=== PATIENT | male | born 1995 | race Hispanic/Latino ===

== ENCOUNTER 2017-09-12 20:06 | Emergency (ER) | payer SELFPAY ==
[2017-09-12 20:34] LABS: EOSINOPHILS % (AUTO) 1.6 % (0.0-8.0); HEMATOCRIT 40.2 % (42-54); LYMPHOCYTES % (AUTO) 16.1 % (21.0-51.0); MEAN CORPUSCULAR HEMOGLOBIN 25.7 pg (27.0-33.0); MEAN CORPUSCULAR HGB CONC 32.5 g/dL (32.0-36.0); MEAN CORPUSCULAR VOLUME 79.2 fL (80-100); MONOCYTES % (AUTO) 8.9 % (3.0-13.0); NEUTROPHILS % (AUTO) 71.4 % (40.0-77.0); PLATELET COUNT (AUTO) 354 K/uL (130-400); RED BLOOD CELL COUNT(AUTO) 5.08 MIL/uL (4.50-6.20); RED CELL DISTRIBUTION WIDTH 14.2 % (11.0-15.5); WHITE BLOOD COUNT (AUTO) 7.7 K/uL (4.8-10.8)
[2017-09-12 20:45] LABS: CARBON DIOXIDE 30 mmol/L (21-32); CHLORIDE 105 mmol/L (101-111); CREATININE 1.1 mg/dL (0.5-1.5); GLOMERULAR FILTR. RATE CALC 90 mL/min (>60); GLUCOSE,RANDOM 89 mg/dL (70-105); SODIUM SERUM 145 mmol/L (136-145); UREA NITROGEN, BLOOD 13 mg/dL (7-18)
[2017-09-12 20:49] LABS: ALANINE AMINOTRANSFERASE 31 U/L (12-78); ALBUMIN 4.1 g/dL (3.5-5.0); ASPARTATE AMINOTRANSFERASE 29 U/L (10-37); BILIRUBIN,TOTAL 0.3 mg/dL (0.2-1.0); TOTAL PROTEIN, SERUM 7.7 g/dL (6.0-8.3)
[2017-09-12 20:51] LABS: ACETAMINOPHEN < 1 mcg/mL (10-29); ALCOHOL, BLOOD < 3 mg/dL (0-10); SALICYLATE < 2.8 mg/dL (2.8-20.0)
[2017-09-12 21:36] LABS: APPEARANCE,URINE Clear (CLEAR); BILIRUBIN,URINE Negative (NEGATIVE); COLOR,URINE Dark Yellow (YELLOW); GLUCOSE, URINE (UA) Negative (NEGATIVE); KETONES,URINE 40 mg/dL (NEGATIVE); LEUKOCYTE ESTERASE ,URINE Negative (NEGATIVE); NITRATE,URINE Negative (NEGATIVE); OCCULT BLOOD,URINE Negative (NEGATIVE); PROTEIN,URINE Negative (NEGATIVE)
[2017-09-12 22:10] LABS: AMPHET/METH SCREEN,URINE NEGATIVE (NEGATIVE); BARBITURATE SCREEN, URINE NEGATIVE (NEGATIVE); BENZODIAZEPINES SCREEN,URINE NEGATIVE (NEGATIVE); CANNABINOID SCREEN,URINE NEGATIVE (NEGATIVE); COCAINE SCREEN,URINE NEGATIVE (NEGATIVE); OPIATE SCREEN,URINE NEGATIVE (NEGATIVE); PHENCYCLIDINE SCREEN,URINE NEGATIVE (NEGATIVE)
== END 2017-09-13 00:22 | disposition home or self-care (01) ==
LOC: EDH 20:06
DX: F41.9 Anxiety disorder, unspecified (principal); F20.9 Schizophrenia, unspecified; F31.9 Bipolar disorder, unspecified; Z72.0 Tobacco use; Z59.0 Homelessness
CPT/HCPCS: 36415; 80053; 80305; 81003; 85025; 93005; 99285; G0480 ×2; G0481

== ENCOUNTER 2017-09-29 23:07 | Emergency (ER) | payer SELFPAY ==
[2017-09-29] MEDS ORDERED: HYOSCYAMINE SULFATE 0.125 MG TAB.SUBL SL ONE (23:42)
[2017-09-30] MEDS ORDERED: ONDANSETRON ODT 4 MG TAB ONE (00:31)
[2017-09-30] MEDS ORDERED: ACETAMINOPHEN EXTRA STRENGTH 500 MG TABLET ONE (00:34)
[2017-09-30 02:16] LABS: OCCULT BLOOD STOOL SINGLE ONLY NEGATIVE (NEGATIVE)
== END 2017-09-30 02:16 | disposition home or self-care (01) ==
LOC: EDH 23:07
DX: R19.7 Diarrhea, unspecified (principal); R50.9 Fever, unspecified; F20.9 Schizophrenia, unspecified; Z72.0 Tobacco use; F31.9 Bipolar disorder, unspecified
CPT/HCPCS: 82270; 87046; 87177; 87205; 87324

== ENCOUNTER 2019-04-30 19:46 | Emergency (ER) | payer OTHER, SELFPAY ==
[2019-04-30 21:21] LABS: BASOPHILS % (AUTO) 0.3 % (0.0-5.0); EOSINOPHILS % (AUTO) 3.1 % (0.0-8.0); LYMPHOCYTES % (AUTO) 18.3 % (21.0-51.0); MEAN CORPUSCULAR HEMOGLOBIN 28.1 pg (27.0-33.0); MONOCYTES % (AUTO) 11.3 % (3.0-13.0); PLATELET COUNT (AUTO) 226 K/uL (130-400); RED BLOOD CELL COUNT(AUTO) 3.88 MIL/uL (4.50-6.20); RED CELL DISTRIBUTION WIDTH 15.5 % (11.0-15.5); WHITE BLOOD COUNT (AUTO) 5.2 K/uL (4.8-10.8)
[2019-04-30 21:22] LABS: APPEARANCE,URINE Clear (CLEAR); BILIRUBIN,URINE Negative (NEGATIVE); COLOR,URINE Yellow (YELLOW); GLUCOSE, URINE (UA) Negative (NEGATIVE); KETONES,URINE 15 mg/dL (NEGATIVE); LEUKOCYTE ESTERASE ,URINE Negative (NEGATIVE); NITRATE,URINE Negative (NEGATIVE); OCCULT BLOOD,URINE Negative (NEGATIVE); PROTEIN,URINE Trace mg/dL (NEGATIVE)
[2019-04-30 21:28] LABS: BACTERIA,URINE Few /HPF (None Seen); RBC,URINE 0-1 /HPF (0-1); SQUAMOUS EPITHELIAL CELL,UR Rare /HPF (0-2); WBC,URINE 0-1 /HPF (0-1)
[2019-04-30 21:29] LABS: MUCUS,URINE Rare LPF (None Seen)
[2019-04-30 21:34] LABS: CARBON DIOXIDE 29 mmol/L (21-32); CHLORIDE 104 mmol/L (101-111); GLOMERULAR FILTR. RATE CALC 98 mL/min (>60); GLUCOSE,RANDOM 95 mg/dL (70-105); POTASSIUM 3.8 mmol/L (3.5-5.1); SODIUM SERUM 138 mmol/L (136-145); UREA NITROGEN, BLOOD 10 mg/dL (7-18)
[2019-04-30 21:35] LABS: INR 0.98 (0.85-1.15); PARTIAL THROMBOPLASTIN TIME 29.9 SEC (26.3-35.5); PROTHROMBIN TIME 10.3 SEC (9.6-11.6)
[2019-04-30 21:38] LABS: ALANINE AMINOTRANSFERASE 18 U/L (12-78); ALBUMIN 3.3 g/dL (3.5-5.0); ALCOHOL, BLOOD < 3 mg/dL (0-10); ASPARTATE AMINOTRANSFERASE 21 U/L (10-37); BILIRUBIN,TOTAL 0.4 mg/dL (0.2-1.0); CREATINE KINASE, TOTAL 296 U/L (21-232); LIPASE 114 U/L (114-286); TOTAL PROTEIN, SERUM 6.9 g/dL (6.0-8.3)
[2019-04-30 21:41] LABS: ACETAMINOPHEN < 1 mcg/mL (10-29); SALICYLATE < 2.8 mg/dL (2.8-20.0)
[2019-04-30 21:54] LABS: AMPHET/METH SCREEN,URINE NEGATIVE (NEGATIVE); BARBITURATE SCREEN, URINE NEGATIVE (NEGATIVE); BENZODIAZEPINES SCREEN,URINE NEGATIVE (NEGATIVE); CANNABINOID SCREEN,URINE NEGATIVE (NEGATIVE); COCAINE SCREEN,URINE NEGATIVE (NEGATIVE); OPIATE SCREEN,URINE NEGATIVE (NEGATIVE); PHENCYCLIDINE SCREEN,URINE NEGATIVE (NEGATIVE)
[2019-04-30] MEDS ORDERED: LORAZEPAM 1 MG TABLET ONE (23:13)
== END 2019-05-01 00:19 | disposition home or self-care (01) ==
LOC: EDH 19:46
DX: R10.9 Unspecified abdominal pain (principal); R11.0 Nausea; F20.9 Schizophrenia, unspecified; F31.9 Bipolar disorder, unspecified; J45.909 Unspecified asthma, uncomplicated
CPT/HCPCS: 36415; 71045; 80053; 80305; 81001; 82550; 83690; 84484 ×2; 85025; 85610; 85730; 93005; 99285; G0480 ×2; G0481

== ENCOUNTER 2019-05-01 07:23 | Emergency (ER) | payer SELFPAY ==
[2019-05-01] MEDS ORDERED: DICYCLOMINE HCL 10 MG/ML 2ML AMP IM ONE (08:18)
[2019-05-01] MEDS ORDERED: ONDANSETRON ODT 4 MG TAB ONE (08:19)
== END 2019-05-01 09:12 | disposition home or self-care (01) ==
LOC: EDH 07:23
DX: R10.9 Unspecified abdominal pain (principal); R11.0 Nausea; R50.9 Fever, unspecified; F31.9 Bipolar disorder, unspecified; F20.9 Schizophrenia, unspecified; J45.909 Unspecified asthma, uncomplicated; Z72.0 Tobacco use
CPT/HCPCS: 96372; 99283; J0500

== ENCOUNTER 2019-08-02 19:08 | Emergency (ER) | payer OTHER, SELFPAY ==
[2019-08-02] MEDS ORDERED: TETANUS/DIPHTHERIA TOXOID [ADULT] 0.5 ML VIAL IM ONE (19:56)
[2019-08-02 19:57] LABS: BASOPHILS % (AUTO) 0.6 % (0.0-5.0); EOSINOPHILS % (AUTO) 1.9 % (0.0-8.0); HEMATOCRIT 39.3 % (42-54); LYMPHOCYTES % (AUTO) 27.1 % (21.0-51.0); MEAN CORPUSCULAR HEMOGLOBIN 24.8 pg (27.0-33.0); MEAN CORPUSCULAR HGB CONC 31.3 g/dL (32.0-36.0); MEAN CORPUSCULAR VOLUME 79.4 fL (79-99); MONOCYTES % (AUTO) 11.3 % (3.0-13.0); NEUTROPHILS % (AUTO) 58.9 % (40.0-77.0); PLATELET COUNT (AUTO) 328 K/uL (130-400); RED BLOOD CELL COUNT(AUTO) 4.95 MIL/uL (4.50-6.20); RED CELL DISTRIBUTION WIDTH 13.5 % (11.0-15.5); WHITE BLOOD COUNT (AUTO) 5.4 K/uL (4.8-10.8)
[2019-08-02 20:15] LABS: APPEARANCE,URINE Clear (CLEAR); BILIRUBIN,URINE Negative (NEGATIVE); COLOR,URINE Yellow (YELLOW); GLUCOSE, URINE (UA) Negative (NEGATIVE); KETONES,URINE Negative (NEGATIVE); LEUKOCYTE ESTERASE ,URINE Negative (NEGATIVE); NITRATE,URINE Negative (NEGATIVE); OCCULT BLOOD,URINE Negative (NEGATIVE); PROTEIN,URINE Negative (NEGATIVE); UROBILINOGEN,URINE 0.2 mg/dL (0.2-1.0)
[2019-08-02 20:16] LABS: AMPHET/METH SCREEN,URINE NEGATIVE (NEGATIVE); BARBITURATE SCREEN, URINE NEGATIVE (NEGATIVE); BENZODIAZEPINES SCREEN,URINE NEGATIVE (NEGATIVE); CANNABINOID SCREEN,URINE NEGATIVE (NEGATIVE); COCAINE SCREEN,URINE NEGATIVE (NEGATIVE); OPIATE SCREEN,URINE NEGATIVE (NEGATIVE); PHENCYCLIDINE SCREEN,URINE NEGATIVE (NEGATIVE)
[2019-08-02 20:23] LABS: CARBON DIOXIDE 27 mmol/L (21-32); CHLORIDE 104 mmol/L (101-111); CREATININE 0.8 mg/dL (0.5-1.5); GLOMERULAR FILTR. RATE CALC 127 mL/min (>60); GLUCOSE,RANDOM 91 mg/dL (70-105); POTASSIUM 3.9 mmol/L (3.5-5.1); SODIUM SERUM 141 mmol/L (136-145); UREA NITROGEN, BLOOD 19 mg/dL (7-18)
[2019-08-02 20:28] LABS: ALANINE AMINOTRANSFERASE 34 U/L (12-78); ALBUMIN 3.8 g/dL (3.5-5.0); ALCOHOL, BLOOD < 3 mg/dL (0-10); ASPARTATE AMINOTRANSFERASE 26 U/L (10-37); BILIRUBIN,TOTAL 0.2 mg/dL (0.2-1.0); CREATINE KINASE, TOTAL 101 U/L (21-232); SALICYLATE 3.2 mg/dL (2.8-20.0); TOTAL PROTEIN, SERUM 7.2 g/dL (6.0-8.3)
[2019-08-02 20:35] LABS: ACETAMINOPHEN < 1 mcg/mL (10-29)
== END 2019-08-02 23:04 | disposition home or self-care (01) ==
LOC: EDH 19:08
DX: S51.811A Laceration without foreign body of right forearm, initial encounter (principal); F20.9 Schizophrenia, unspecified; J45.909 Unspecified asthma, uncomplicated; F31.9 Bipolar disorder, unspecified; Z72.0 Tobacco use; Z79.899 Other long term (current) drug therapy; Z91.030 Bee allergy status; X83.8XXA Intentional self-harm by other specified means, initial encounter; Y93.89 Activity, other specified; Y92.89 Other specified places as the place of occurrence of the external cause; Y99.8 Other external cause status
CPT/HCPCS: 36415; 80053; 80305; 81003; 82550; 84484; 85025; 90471; 90714; 93005; 99285; G0480 ×2; G0481

== ENCOUNTER 2020-01-12 11:28 | Observation (INO) | payer OTHER ==
[~2020-01-12] VITALS: Ht 188 cm; Wt 89.4 kg
[2020-01-12 12:13] LABS: BASOPHILS % (AUTO) 0.8 % (0.0-5.0); EOSINOPHILS % (AUTO) 0.9 % (0.0-8.0); HEMATOCRIT 44.2 % (42-54); LYMPHOCYTES % (AUTO) 13.5 % (21.0-51.0); MEAN CORPUSCULAR HEMOGLOBIN 25.9 pg (27.0-33.0); MEAN CORPUSCULAR HGB CONC 32.8 g/dL (32.0-36.0); MEAN CORPUSCULAR VOLUME 78.9 fL (79-99); MONOCYTES % (AUTO) 6.8 % (3.0-13.0); NEUTROPHILS % (AUTO) 77.6 % (40.0-77.0); PLATELET COUNT (AUTO) 323 K/uL (130-400); RED CELL DISTRIBUTION WIDTH 14.9 % (11.0-15.5); WHITE BLOOD COUNT (AUTO) 7.9 K/uL (4.8-10.8)
[2020-01-12 12:18] LABS: APPEARANCE,URINE Clear (CLEAR); BILIRUBIN,URINE Small (NEGATIVE); COLOR,URINE Dark Yellow (YELLOW); GLUCOSE, URINE (UA) Negative (NEGATIVE); KETONES,URINE Trace mg/dL (NEGATIVE); LEUKOCYTE ESTERASE ,URINE Negative (NEGATIVE); NITRATE,URINE Negative (NEGATIVE); OCCULT BLOOD,URINE Negative (NEGATIVE); PH,URINE 5.5 (5.0-8.0); PROTEIN,URINE POS 1+ mg/dL (NEGATIVE)
[2020-01-12 12:21] LABS: AMPHET/METH SCREEN,URINE NEGATIVE (NEGATIVE); BARBITURATE SCREEN, URINE NEGATIVE (NEGATIVE); BENZODIAZEPINES SCREEN,URINE NEGATIVE (NEGATIVE); CANNABINOID SCREEN,URINE POSITIVE (NEGATIVE); COCAINE SCREEN,URINE POSITIVE (NEGATIVE); OPIATE SCREEN,URINE NEGATIVE (NEGATIVE); PHENCYCLIDINE SCREEN,URINE NEGATIVE (NEGATIVE)
[2020-01-12 12:27] LABS: CARBON DIOXIDE 27 mmol/L (21-32); CHLORIDE 104 mmol/L (101-111); CREATININE 1.2 mg/dL (0.5-1.5); GLOMERULAR FILTR. RATE CALC 79 mL/min (>60); GLUCOSE,RANDOM 95 mg/dL (70-105); POTASSIUM 3.6 mmol/L (3.5-5.1); SODIUM SERUM 140 mmol/L (136-145); UREA NITROGEN, BLOOD 20 mg/dL (7-18)
[2020-01-12 12:31] LABS: ALANINE AMINOTRANSFERASE 24 U/L (12-78); ALBUMIN 4.4 g/dL (3.5-5.0); ASPARTATE AMINOTRANSFERASE 25 U/L (10-37); BILIRUBIN,TOTAL 0.8 mg/dL (0.2-1.0); SALICYLATE 3.6 mg/dL (2.8-20.0); TOTAL PROTEIN, SERUM 8.2 g/dL (6.0-8.3)
[2020-01-12 12:35] LABS: ACETAMINOPHEN < 1 mcg/mL (10-29)
[2020-01-12 13:23] LABS: BACTERIA,URINE Few /HPF (None Seen); CALCIUM OXALATE CRYSTALS,UR Moderate /LPF (None Seen); MUCUS,URINE Moderate LPF (None Seen); RBC,URINE 0-1 /HPF (0-1); SQUAMOUS EPITHELIAL CELL,UR 0-2 /HPF (0-2); WBC,URINE None Seen /HPF (0-1)
[2020-01-12] MEDS ORDERED: OLANZAPINE 5 MG TAB PO SCH (17:45)
[2020-01-12] MEDS ORDERED: ACETAMINOPHEN 325 MG TAB PO PRN ×2 (20:45)
[2020-01-12] MEDS ORDERED: ALPRAZOLAM 0.5 MG TABLET PO PRN (20:45)
[2020-01-12] MEDS ORDERED: ONDANSETRON HCL 4 MG/2 ML VIAL IV PRN (20:45)
[2020-01-12] MEDS: FAMOTIDINE 20MG TAB 20 MG TAB PO SCH (21:00)
[2020-01-12] MEDS ORDERED: FAMOTIDINE 20MG TAB 20 MG TAB ONE (21:14)
[2020-01-13 00:42] VITALS: BP 97/56
[2020-01-13 04:00] VITALS: BP 106/46
[2020-01-13 06:09] LABS: BASOPHILS % (AUTO) 0.7 % (0.0-5.0); EOSINOPHILS % (AUTO) 2.1 % (0.0-8.0); HEMATOCRIT 45.4 % (42-54); LYMPHOCYTES % (AUTO) 22.3 % (21.0-51.0); MEAN CORPUSCULAR HEMOGLOBIN 25.7 pg (27.0-33.0); MEAN CORPUSCULAR HGB CONC 32.2 g/dL (32.0-36.0); MEAN CORPUSCULAR VOLUME 79.9 fL (79-99); MONOCYTES % (AUTO) 8.7 % (3.0-13.0); NEUTROPHILS % (AUTO) 65.8 % (40.0-77.0); PLATELET COUNT (AUTO) 282 K/uL (130-400); RED BLOOD CELL COUNT(AUTO) 5.68 MIL/uL (4.50-6.20); WHITE BLOOD COUNT (AUTO) 7.2 K/uL (4.8-10.8)
[2020-01-13 06:38] LABS: ALBUMIN 3.8 g/dL (3.5-5.0); BILIRUBIN,TOTAL 0.8 mg/dL (0.2-1.0); CREATININE 1.1 mg/dL (0.5-1.5); POTASSIUM 4.1 mmol/L (3.5-5.1); TOTAL PROTEIN, SERUM 7.5 g/dL (6.0-8.3)
[2020-01-13 08:00] VITALS: BP 128/79
[2020-01-13] MEDS ORDERED: FOLIC ACID 1 MG TABLET PO SCH (09:00)
[2020-01-13] MEDS ORDERED: THIAMINE HCL 100 MG TABLET PO SCH (09:00)
[2020-01-13] MEDS: FAMOTIDINE 20MG TAB 20 MG TAB PO SCH (09:52)
[2020-01-13] MEDS: LACTATED RINGERS 1000ML 1,000 ML IV SCH ×2 (09:57→14:17)
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
[2020-01-13 11:00] VITALS: BP 109/46
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
--- NOTE | 2020-01-13 11:25 | NUR ---
PT IV PT STATED HE WAS GOING TO PULL IV OUT IF I DIDN'T D/C IV. IV 20 G D/C. Addendum: 01/13/20 at 1127 by RYAN NOLAN RN RN I EXPLAINED THE IMPORTANCE OF HAVING AN IV ACCES FOR FLUID IV ADMINISTRATION. HE STILL WANTED IV D.C
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
--- NOTE | 2020-01-13 14:24 | NUR ---
[facility] PER [place] CRISIS SCREENER, SPOKE TO HER RECREATIONAL ASSISTANT AND DOESN'T MEET CRITERIA. MARIE STATES, THAT HE HAS DONE THIS BEFORE THAT HE IS BEING MANIPULATIVE. I RAISED MY CONCERN ABOUT HIS SUICIDE IDEATIONS. MR SALAZAR STATED AGAIN PER HER RECREATIONAL ASSISTANT DOESN'T MEET CRITERIA.
[2020-01-13] MEDS ORDERED: OLANZAPINE 10MG/ML 1ML VIAL IM STA (15:06)
[2020-01-13] MEDS ORDERED: OLANZAPINE 10MG/ML 1ML VIAL IM SCH (15:11)
[2020-01-13] MEDS ORDERED: DiphenhydrAMINE HCL 50 MG/ML VIAL IM SCH (15:15)
--- NOTE | 2020-01-13 15:35 | NUR ---
IM INJ PT AGREED TO RECEIVE IM INJ
[2020-01-13 16:00] VITALS: BP 111/57
[2020-01-13] MEDS ORDERED: OLANZAPINE 10MG/ML 1ML VIAL IM PRN (16:00)
--- NOTE | 2020-01-13 17:00 | NUR ---
MULTIPLE DISCUSSION WITH [facility] CALL TO [facility] RE TELEPHONE ASSESSMENT DONE IN ER. POINTED OUT THAT THE PATIENT WAS CONSIDERED 'SAFE TO DISCHARGE IN CARE OF PARTNER" ADVISED MARIE AT [facility] THAT NO REPORT IS IN THE CHART AND THAT THERE IS NO PARTNER SO THEREFORE THAT PART OF THE DISPO CANNOT BE FULFILLED. RESCREENING REQUESTED BY THIS CM AND DONE AT BEDSIDE BY [facility] SCREENINER VIA CELL PHONE- THIS CM'S. AT END OF CALL PATIENT STARTED YELLING AT SCREENER-- AND THREW THE PHONE ON THE END OF THE BED. CALL BACK TO RYAN FROM [place] - STATES DOES NOT MEET CRITERIA. THIS CM CALLED [facility] TO GET SUPERVISIOR EXPLANATION- KATIE PRADHAN- WHO STMED REC COMPLETED CONFIRMED W THAIS AND SENT BY RIGOBERTO THAT PATIENT IS WELL KNOWNS TO [facility] AND THAT THEY WILL REPORT HIS CURRENT BEHAVIOR TO THE [facility]. LORNE STATES [facility] CAN DISCHARGE PT HE IS ALERT AND CAPABLE OF MAKING DECISIONS FOR HIMSELF. ADVISED DR. TRINIDAD, WHO WAS HERE TO SEE PATIENT- HE GAVE ORDER FOR MEDS -TO DECREASE RISK OF HARM TO STAFF- AND TO CALL THE POLICE AND REPORT PATIENT THREATS. ORDER PLACED FOR CALL TO POLICE AND ADVISED [facility] CM DIR DAL[place], -- AND CHARGE NURSE ARVIND OF SAME Addendum: 01/13/20 at 1801 by KAREN DUDLEY RN CM Amended: Links added.
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
--- NOTE | 2020-01-13 21:10 | NUR ---
01/13/20 @ 2017: Patient very upset since the beginning of the shift. He continued insisting he was going to be leaving even if it was without the doctors consent. Did explain to the patient the reason why we could not discharge him, due to his insistence of killing himself, and hurting others. Patient earlier had stated he was still having those thoughts. Now patient stating he does want to hurt himself or any one else. Patient insisted that he has things to do. I continued to encouraged patient to stay, informed him of the risk if he lives which would even include , verbalized understanding. Patient encouraged to follow up with his doctor. Instructed to come back to the ER or call EMS if he starts feeling homicidal or suicidal, encouraged also to call hotline if he did not want to come back. Patient verbalized understanding, stated he did not need anyone. Patient went ahead and signed the AMA form. Waiting for security to bring his back pack. 01/13/20 @ 2024: Serina MARTINvideo game animator called and made her aware of the patient signing himself AMA. Instructed to make sure and call [facility] ACE[facility]ED[facility] to make them aware patient will be leaving. 01/13/20 @ 2025: I called [facility] ACE[facility], spoke to Taye informed him That Evon one of the officers # [id number] had come in earlier to make a report. Taye attempted to locate the officer, Taye came back on the line and informed me the officer is on a call. Taye stated he would let him know the patient left the hospital AMA and is out in the streets. 01/13/20 @2109: Patient received his backpack and was escorted down by MOLD INSERT CHANGER to ER exit. Instructed patient to be safe and come back if feeling any bad taught, or feeling sick. Patient verbalized understanding.
== END 2020-01-13 21:10 | disposition left against medical advice (07) ==
LOC: EDH 11:28 → EDHIP 20:32 → 3BH 23:28
PROVIDERS: ADMIT Internal Medicine; ATTEND Internal Medicine
DX: F29 Unspecified psychosis not due to a substance or known physiological condition (principal); S60.511A Abrasion of right hand, initial encounter; R45.851 Suicidal ideations; R45.850 Homicidal ideations; J45.909 Unspecified asthma, uncomplicated; F31.9 Bipolar disorder, unspecified; F20.9 Schizophrenia, unspecified; F60.2 Antisocial personality disorder; Z91.030 Bee allergy status; Z59.0 Homelessness; X58.XXXA Exposure to other specified factors, initial encounter; Y93.9 Activity, unspecified; Y92.9 Unspecified place or not applicable; Y99.9 Unspecified external cause status
CPT/HCPCS: 36415 ×2; 80053 ×2; 80305; 81001; 82550; 84484; 85025 ×2; 96372 ×2; G0378 ×5; G0480 ×2; G0481; J1200; J3490 ×2; J7120

== ENCOUNTER 2020-08-18 03:00 | Emergency (ER) | payer OTHER ==
[2020-08-18 03:23] LABS: BASOPHILS % (AUTO) 0.7 % (0.0-5.0); EOSINOPHILS % (AUTO) 1.9 % (0.0-8.0); HEMATOCRIT 45.8 % (42-54); LYMPHOCYTES % (AUTO) 31.5 % (21.0-51.0); MEAN CORPUSCULAR HEMOGLOBIN 26.1 pg (27.0-33.0); MEAN CORPUSCULAR HGB CONC 32.5 g/dL (32.0-36.0); MEAN CORPUSCULAR VOLUME 80.4 fL (79-99); MONOCYTES % (AUTO) 6.3 % (3.0-13.0); NEUTROPHILS % (AUTO) 59.4 % (40.0-77.0); PLATELET COUNT (AUTO) 244 K/uL (130-400); RED CELL DISTRIBUTION WIDTH 15.5 % (11.0-15.5); WHITE BLOOD COUNT (AUTO) 5.9 K/uL (4.8-10.8)
[2020-08-18 03:25] LABS: APPEARANCE,URINE Clear (CLEAR); BILIRUBIN,URINE Negative (NEGATIVE); COLOR,URINE Yellow (YELLOW); GLUCOSE, URINE (UA) Negative (NEGATIVE); KETONES,URINE Negative (NEGATIVE); LEUKOCYTE ESTERASE ,URINE Negative (NEGATIVE); NITRATE,URINE Negative (NEGATIVE); OCCULT BLOOD,URINE Negative (NEGATIVE); PH,URINE 5.5 (5.0-8.0); PROTEIN,URINE Negative (NEGATIVE); UROBILINOGEN,URINE 0.2 mg/dL (0.2-1.0)
[2020-08-18 03:27] LABS: CREATININE 1.1 mg/dL (0.5-1.5); POTASSIUM 4.4 mmol/L (3.5-5.1)
[2020-08-18 03:30] LABS: AMPHET/METH SCREEN,URINE NEGATIVE (NEGATIVE); BARBITURATE SCREEN, URINE NEGATIVE (NEGATIVE); BENZODIAZEPINES SCREEN,URINE NEGATIVE (NEGATIVE); CANNABINOID SCREEN,URINE NEGATIVE (NEGATIVE); COCAINE SCREEN,URINE POSITIVE (NEGATIVE); OPIATE SCREEN,URINE NEGATIVE (NEGATIVE); PHENCYCLIDINE SCREEN,URINE NEGATIVE (NEGATIVE)
[2020-08-18 03:32] LABS: ACETAMINOPHEN < 1 mcg/mL (10-29); ALBUMIN 3.8 g/dL (3.5-5.0); BILIRUBIN,TOTAL 0.3 mg/dL (0.2-1.0); SALICYLATE < 2.8 mg/dL (2.8-20.0)
== END 2020-08-18 11:30 | disposition short-term general hospital (02) ==
LOC: EDH 03:00
DX: R45.851 Suicidal ideations (principal); J45.909 Unspecified asthma, uncomplicated; F31.9 Bipolar disorder, unspecified; F20.9 Schizophrenia, unspecified; Z91.030 Bee allergy status
CPT/HCPCS: 36415; 80053; 80305; 81003; 85025; 99283; G0481

== ENCOUNTER 2020-09-01 20:53 | Emergency (ER) | payer SELFPAY ==
[2020-09-01 21:41] LABS: APPEARANCE,URINE Clear (CLEAR); BILIRUBIN,URINE Negative (NEGATIVE); COLOR,URINE Yellow (YELLOW); GLUCOSE, URINE (UA) Negative (NEGATIVE); KETONES,URINE Trace mg/dL (NEGATIVE); LEUKOCYTE ESTERASE ,URINE Negative (NEGATIVE); NITRATE,URINE Negative (NEGATIVE); OCCULT BLOOD,URINE Negative (NEGATIVE); PH,URINE 5.5 (5.0-8.0); PROTEIN,URINE Negative (NEGATIVE); UROBILINOGEN,URINE 0.2 mg/dL (0.2-1.0)
[2020-09-01 21:43] LABS: BASOPHILS % (AUTO) 0.7 % (0.0-5.0); EOSINOPHILS % (AUTO) 1.5 % (0.0-8.0); HEMATOCRIT 40.8 % (42-54); LYMPHOCYTES % (AUTO) 30.6 % (21.0-51.0); MEAN CORPUSCULAR HEMOGLOBIN 25.7 pg (27.0-33.0); MEAN CORPUSCULAR HGB CONC 32.1 g/dL (32.0-36.0); MEAN CORPUSCULAR VOLUME 80.2 fL (79-99); MONOCYTES % (AUTO) 8.1 % (3.0-13.0); NEUTROPHILS % (AUTO) 58.8 % (40.0-77.0); PLATELET COUNT (AUTO) 209 K/uL (130-400); RED BLOOD CELL COUNT(AUTO) 5.09 MIL/uL (4.50-6.20); RED CELL DISTRIBUTION WIDTH 15.4 % (11.0-15.5); WHITE BLOOD COUNT (AUTO) 5.8 K/uL (4.8-10.8)
[2020-09-01 21:48] LABS: AMPHET/METH SCREEN,URINE NEGATIVE (NEGATIVE); BARBITURATE SCREEN, URINE NEGATIVE (NEGATIVE); BENZODIAZEPINES SCREEN,URINE NEGATIVE (NEGATIVE); CANNABINOID SCREEN,URINE NEGATIVE (NEGATIVE); COCAINE SCREEN,URINE POSITIVE (NEGATIVE); OPIATE SCREEN,URINE NEGATIVE (NEGATIVE); PHENCYCLIDINE SCREEN,URINE NEGATIVE (NEGATIVE)
[2020-09-01 22:08] LABS: CARBON DIOXIDE 27 mmol/L (21-32); CHLORIDE 108 mmol/L (101-111); CREATININE 1.1 mg/dL (0.5-1.5); GLOMERULAR FILTR. RATE CALC 87 mL/min (>60); GLUCOSE,RANDOM 100 mg/dL (70-105); POTASSIUM 4.1 mmol/L (3.5-5.1); SODIUM SERUM 141 mmol/L (136-145); UREA NITROGEN, BLOOD 12 mg/dL (7-18)
[2020-09-01 22:21] LABS: ALANINE AMINOTRANSFERASE 27 U/L (12-78); ASPARTATE AMINOTRANSFERASE 28 U/L (10-37); BILIRUBIN,TOTAL 0.3 mg/dL (0.2-1.0)
[2020-09-01 22:22] LABS: ACETAMINOPHEN < 1 mcg/mL (10-29); ALBUMIN 3.7 g/dL (3.5-5.0); ALCOHOL, BLOOD < 3 mg/dL (0-10); CREATINE KINASE, TOTAL 444 U/L (21-232); SALICYLATE < 2.8 mg/dL (2.8-20.0)
[2020-09-01] MEDS ORDERED: SODIUM CHLORIDE 0.9% 1000ML 1,000 ML IV ONE (23:20)
== END 2020-09-02 00:55 | disposition home or self-care (01) ==
LOC: EDH 20:53
DX: F31.89 Other bipolar disorder (principal); F19.10 Other psychoactive substance abuse, uncomplicated; J45.909 Unspecified asthma, uncomplicated; F20.9 Schizophrenia, unspecified; Z59.0 Homelessness; Z91.030 Bee allergy status
CPT/HCPCS: 36415; 80053; 80305; 81003; 82550; 85025; 99283; G0481; J7030

== ENCOUNTER 2020-10-25 12:49 | Emergency (ER) | payer OTHER | END 2020-10-25 13:16 | LOC: EDH 12:49 → EEVIPCON 12:49 → EDH 13:16 | DX: S50.812A Abrasion of left forearm, initial encounter (principal); S90.812A Abrasion, left foot, initial encounter; S90.811A Abrasion, right foot, initial encounter; F20.9 Schizophrenia, unspecified; F31.9 Bipolar disorder, unspecified; Z91.030 Bee allergy status; J45.909 Unspecified asthma, uncomplicated; X58.XXXA Exposure to other specified factors, initial encounter; Y93.89 Activity, other specified; Y92.89 Other specified places as the place of occurrence of the external cause; Y99.8 Other external cause status ==

== ENCOUNTER 2021-06-23 05:27 | Emergency (ER) | payer SELFPAY ==
[~2021-06-23] VITALS: Ht 177.8 cm; Wt 68.0 kg
[2021-06-23] MEDS ORDERED: MORPHINE 2 MG SYG ONE (06:06)
[2021-06-23 08:00] VITALS: BP 118/72
== END 2021-06-23 13:30 | disposition left against medical advice (07) ==
LOC: EDH 05:27
DX: R45.851 Suicidal ideations (principal); F32.A Depression, unspecified
CPT/HCPCS: 99281

== ENCOUNTER 2021-06-23 16:58 | Emergency (ER) | payer SELFPAY ==
[~2021-06-23] VITALS: Ht 182.9 cm; Wt 54.4 kg
[2021-06-23 17:23] LABS: APPEARANCE,URINE Clear (CLEAR); BILIRUBIN,URINE Negative (NEGATIVE); COLOR,URINE Yellow (YELLOW); GLUCOSE, URINE (UA) Negative (NEGATIVE); KETONES,URINE Negative (NEGATIVE); LEUKOCYTE ESTERASE ,URINE Negative (NEGATIVE); NITRATE,URINE Negative (NEGATIVE); OCCULT BLOOD,URINE Negative (NEGATIVE); PROTEIN,URINE Negative (NEGATIVE)
[2021-06-23 17:30] LABS: AMPHET/METH SCREEN,URINE NEGATIVE (NEGATIVE); BARBITURATE SCREEN, URINE NEGATIVE (NEGATIVE); BENZODIAZEPINES SCREEN,URINE NEGATIVE (NEGATIVE); CANNABINOID SCREEN,URINE NEGATIVE (NEGATIVE); COCAINE SCREEN,URINE POSITIVE (NEGATIVE); OPIATE SCREEN,URINE NEGATIVE (NEGATIVE); PHENCYCLIDINE SCREEN,URINE NEGATIVE (NEGATIVE)
[2021-06-23 17:31] LABS: BASOPHILS % (AUTO) 0.8 % (0.0-5.0); EOSINOPHILS % (AUTO) 2.8 % (0.0-8.0); HEMATOCRIT 44.2 % (42-54); LYMPHOCYTES % (AUTO) 28.4 % (21.0-51.0); MEAN CORPUSCULAR HEMOGLOBIN 25.9 pg (27.0-33.0); MEAN CORPUSCULAR HGB CONC 31.4 g/dL (32.0-36.0); MEAN CORPUSCULAR VOLUME 82.5 fL (79-99); MONOCYTES % (AUTO) 9.2 % (3.0-13.0); NEUTROPHILS % (AUTO) 58.6 % (40.0-77.0); PLATELET COUNT (AUTO) 238 K/uL (130-400); RED BLOOD CELL COUNT(AUTO) 5.36 MIL/uL (4.50-6.20); RED CELL DISTRIBUTION WIDTH 14.8 % (11.0-15.5); WHITE BLOOD COUNT (AUTO) 6.1 K/uL (4.8-10.8)
[2021-06-23 17:42] LABS: CARBON DIOXIDE 31 mmol/L (21-32); CHLORIDE 104 mmol/L (101-111); CREATININE 1.2 mg/dL (0.5-1.5); GLOMERULAR FILTR. RATE CALC 78 mL/min (>60); GLUCOSE,RANDOM 57 mg/dL (70-105); POTASSIUM 4.1 mmol/L (3.5-5.1); SODIUM SERUM 140 mmol/L (136-145); UREA NITROGEN, BLOOD 17 mg/dL (7-18)
[2021-06-23 17:44] LABS: ALANINE AMINOTRANSFERASE 22 U/L (12-78); ALBUMIN 3.6 g/dL (3.5-5.0); ALCOHOL, BLOOD < 3 mg/dL (0-10); ASPARTATE AMINOTRANSFERASE 22 U/L (10-37); BILIRUBIN,TOTAL 0.2 mg/dL (0.2-1.0); TOTAL PROTEIN, SERUM 7.2 g/dL (6.0-8.3)
[2021-06-23 17:45] LABS: ACETAMINOPHEN < 1 mcg/mL (10-29); SALICYLATE < 2.8 mg/dL (2.8-20.0)
[2021-06-24 15:00] VITALS: BP 126/74
== END 2021-06-24 15:30 | disposition home or self-care (01) ==
LOC: EDH 16:58
DX: R45.851 Suicidal ideations (principal); F20.9 Schizophrenia, unspecified; F31.9 Bipolar disorder, unspecified; G47.00 Insomnia, unspecified; Z20.822 Contact with and (suspected) exposure to COVID-19; Z59.00 Homelessness unspecified
CPT/HCPCS: 36415 ×2; 80053; 80305; 81003; 82550; 82948; 85025; 87635; 99285; C9803; G0481

== ENCOUNTER 2021-09-20 11:42 | Emergency (ER) | payer OTHER ==
[~2021-09-20] VITALS: Ht 188 cm; Wt 66.7 kg
[2021-09-20 11:48] VITALS: BP 100/53
[2021-09-20] MEDS ORDERED: AMOX1TAB16 PO (13:38)
[2021-09-20] MEDS ORDERED: IBUP-2070 PO (13:38)
[2021-09-20] MEDS ORDERED: AMOX/CLAV 875/125MG TAB PO SCH (14:00)
[2021-09-20] MEDS ORDERED: IBUPROFEN 600 MG TABLET PO SCH (14:00)
== END 2021-09-20 13:58 | disposition home or self-care (01) ==
LOC: EDH 11:42
DX: J02.9 Acute pharyngitis, unspecified (principal); Z20.822 Contact with and (suspected) exposure to COVID-19; F20.9 Schizophrenia, unspecified; F31.9 Bipolar disorder, unspecified; Z79.1 Long term (current) use of non-steroidal anti-inflammatories (NSAID)
CPT/HCPCS: 87635; 87804 ×2; 87880; 99283; C9803

== ENCOUNTER 2021-09-23 17:50 | Emergency (ER) | payer OTHER ==
[~2021-09-23] VITALS: Ht 188 cm; Wt 68.0 kg
[~2021-09-23 17:50] MED LIST: AMOX1TAB16 PO; IBUP-2070 PO
[2021-09-23 17:51] VITALS: BP 119/78
[2021-09-23] MEDS ORDERED: FAMOTIDINE 20MG TAB PO ONE (18:00)
[2021-09-23] MEDS ORDERED: MAG/ALUM/SIMETH 30 ML UDCUP PO ONE (18:00)
[2021-09-23] MEDS ORDERED: ACETAMINOPHEN 325 MG TAB PO ONE (18:00)
[2021-09-23] MEDS ORDERED: ACET-2247 PO (18:40)
== END 2021-09-23 18:59 | disposition home or self-care (01) ==
LOC: EDH 17:50
DX: J02.9 Acute pharyngitis, unspecified (principal); F41.9 Anxiety disorder, unspecified; F31.9 Bipolar disorder, unspecified; Z79.1 Long term (current) use of non-steroidal anti-inflammatories (NSAID)
CPT/HCPCS: 87880